=== PATIENT | female | born 1995 | race Caucasian/White ===

== ENCOUNTER 2023-05-08 22:23 | Emergency (ER) | payer OTHER, SELFPAY ==
[2023-05-08 22:25] VITALS: BP 98/77; PULSE 99; RESP 18; TEMP 36.9; O2SAT 100; BMI 25.2
[2023-05-08 22:50] LABS: Bacteria 0 SEEN /hpf (None Seen); Mucous, Urine 0 SEEN /hpf (<or=2+); Red Blood Cells-Urine 0 SEEN /hpf (0-5); White Blood Cells 0 SEEN /hpf (0-5)
--- NOTE | 2023-05-08 22:55 | EDS_ITS ---
HPI HPI - Female History of Present Illness Chief Complaint: Female C/O Informant: patient Pain Pain: Positive for Pelvic Pain Onset: Hours (0.5) Context: Gradual Onset Quality: Positive for Cramping Location: Suprapubic Current Severity: Gone Maximum Severity: Severe Narrative Narrative: Patient is a healthy 27-year-old female states she recently had Nexplanon placed, this was less than 1 year ago, and since then she has menstrual cycles about every 3 months. Her last 1 was in January. She states she is expecting one soon she started getting cramping a couple days ago, and was expecting to have it anytime now. Tonight the cramping started and became severe lasting about 20 or 25 minutes, upon getting to the ER is started to let up and upon evaluation she states the discomfort is gone. She felt a little nauseated but did not vomit. She denies any presyncopal symptoms. No vaginal bleeding or discharge recently. Last time she had intercourse was within the past month. She has low suspicion for STI and she was tested in February last, and was negative, she does not have a history of STIs. She states the pain was pelvic consistent with cramping she has had with cycles in the past, nonlateralizing, nonradiating no back pain. No abnormal stools or urination, no urinary symptoms lately. States he feels better now but is concerned about what caused the cramping. [facility] Medical History (Updated 05/08/23 @ 22:[address] rA Henson MD) Depression Home Medications bupropion HCl 150 mg 24 hr tablet, extended release (Wellbutrin XL) 150 mg PO DAILY 05/08/23 [History Last Taken Unknown] Allergy/AdvReac Type Severity Reaction Status Date / Time No Known Allergies Allergy Verified 05/08/23 22:27 Social History Smoking Status: Never smoker ROS ROS ED Constitutional Constitutional ED: Denies chills or fever(s) Eyes Eyes: Denies change in vision or diplopia ENT ENT ED: Denies rhinorrhea or sore throat Cardiovascular Cardiovascular: Denies chest pain or palpitations Respiratory/Chest Respiratory/Chest: Denies cough or dyspnea Gastrointestinal Gastrointestinal: Reports as per HPI, abdominal pain and nausea; Denies diarrhea or vomiting Genitourinary Genitourinary ED: Denies dysuria or hematuria Musculoskeletal Musculoskeletal: Denies back pain or neck pain Integumentary Denies abscess or rash Neurologic Neurologic: Denies headache(s), paresthesias or weakness Psychiatric Psychiatric: Denies anxiety or suicidal thoughts EXAM Physical Exam Const Vital Signs: 05/08/23 22:25 Temperature 98.4 F Temperature Source Temporal Pulse Rate 99 Respiratory Rate 18 Blood Pressure 98/77 Blood Pressure Mean 84 Pulse Ox 100 Oxygen Delivery Method Room Air Positive well nourished and well developed General Appearance ED: well developed and NAD HEENT Reports moist mucous membranes normocephalic and atraumatic Eyes PERRL and EOMs intact bilaterally Neck full ROM and supple Resp normal respiratory effort and clear to auscultation bilaterally Cardio regular rate, regular rhythm and no murmurs Rate: Negative for tachycardic GI non-tender and non-distended Auscultation: normoactive bowel sounds Palpation: soft Back/Spine no CVA tenderness General Back: other FROM Extremity normal to inspection General Extremety ED: Negative for edema, pulses abnormal or tenderness General Extremity: Negative for edema or pulses abnormal Neuro oriented x3, CN's II-XII intact bilaterally and no sensory deficits noted Sensorium / Orientation: awake and alert Motor Exam: strength 5/5 throughout Skin no rashes or lesions noted and no wounds MDM MDM MDM Narrative Medical decision making narrative: Patient has very benign exam right now. Differential does include ectopic although her discomfort was nonlateralizing and is resolved, that and torsion are thought to be much less likely here. Cystitis also in the differential given the location of the discomfort but less likely given lack of urinary symptoms and U/A normal. GI etiologies in the differential but less likely because it felt like uterine cramping to her, it was just more severe. Probably uterine in etiology, but urine is negative, so ultrasound much less likely to be helpful in diagnosing the problem here. She probably is about to have her cycle, and since it has been 3-4 months since her last 1, she probably has a built-up endometrium which may be related. Close a patient follow-up advised, she stable for discharge and did not have recurrent pain while being observed in the ER she is comfortable with that plan. Lab Data Attestation: I reviewed the patient's lab results. Labs: Laboratory Results - last 24 hr 05/08/23 22:30 Urine Color Yellow Urine Clarity Clear Urine pH 6.5 Ur Specific Cook 1.005 Urine Protein Negative Urine Glucose (UA) Normal Urine Ketones Negative Urine Occult Blood Negative Urine Nitrite Negative Urine Bilirubin Negative Urine Urobilinogen Normal Ur Leukocyte Esterase Negative Urine RBC 0 SEEN Urine WBC 0 SEEN Ur Squamous Epith Cells 0-5 SEEN Urine Bacteria 0 SEEN Urine Mucus 0 SEEN Urine Test Negative Discharge Plan Triage Chief Complaint: Female C/O ED Provider: Ar Henson Dx/Rx/DC Orders Clinical Impression: Acute pain in female pelvis Instructions: ED MENSTRUAL CRAMPING Prescriptions: No Action bupropion HCl [Wellbutrin XL] 150 mg tablet extended release 24 hr 150 mg PO DAILY Primary Care Provider: Care Physician,No Primary Referrals: Kt Hart MD [Med Staff - Active Staff] - As Needed (or your own FILM SPOOLER if you already have one) Disposition Disposition: Home, Self Care
[2023-05-08 22:58] LABS: Color, Urine Yellow (Yellow); Glucose, Dipstick Normal (Normal); Ketone-Dipstick Negative (Negative); Leukocyte Esterase-Dipstick Negative /ul (Negative); Nitrite-Dipstick Negative (Negative); Occult Blood-Urine Negative /ul (Negative); Protein-Dipstick Negative (Negative); Specific Gravity, Urine 1.005 (1.002-1.030); Urine Bilirubin Dipstick Negative (Negative); Urine Clarity Clear (Clear); Urine Urobilinogen Normal (Normal); Urine pH 6.5 (5.0 - 8.0)
[2023-05-08 23:08] LABS: Internal QC Validated? YES +Cl - CLEAR BKGD; Pregnancy, Urine Negative Negative; Squamous Epithelial Cells - UA 0-5 SEEN /hpf (5-10)
[2023-05-08 23:59] VITALS: PULSE 63; RESP 15; O2SAT 98
== END 2023-05-09 | disposition home or self-care (01) ==
PROVIDERS: Emergency Provider Emergency Medicine; Visit Provider Emergency Medicine
DX: R10.2 Pelvic and perineal pain (principal)
CPT/HCPCS: 81001; 81025; 99282